=== PATIENT | male | born 1980 | race Two or more races ===

== ENCOUNTER → 2018-01-07 | Emergency (ER) | payer OTHER ==
[~2018-01-07] VITALS: Ht 180.3 cm; Wt 117.9 kg
== END | disposition home or self-care (01) ==
LOC: ER 08:55
DX: M54.2 Cervicalgia (principal)

== ENCOUNTER 2022-01-04 17:14 | Emergency (ER) | payer OTHER ==
[~2022-01-04] VITALS: Ht 180.3 cm; Wt 99.8 kg
[2022-01-04] MEDS ORDERED: COZAAR25 MG PO (17:28)
[2022-01-04] MEDS ORDERED: HYDROXYZINE HCL25 MG PO (19:16)
== END 2022-01-04 20:17 | disposition home or self-care (01) ==
LOC: ER 17:14
DX: F41.9 Anxiety disorder, unspecified (principal)

== ENCOUNTER 2023-10-15 20:05 | Emergency (ER) | payer OTHER ==
[~2023-10-15] VITALS: Ht 180.3 cm; Wt 129.7 kg
[~2023-10-15 20:05] MED LIST: COZAAR25 MG PO; HYDROXYZINE HCL25 MG PO
== END 2023-10-15 22:49 | disposition home or self-care (01) ==
LOC: ER 20:06
DX: J06.9 Acute upper respiratory infection, unspecified (principal)
CPT/HCPCS: 96372; 99284; J0696; J1885